=== PATIENT | female | born 1995 | race African-American/Black ===

== ENCOUNTER 2017-05-14 17:56 | Emergency (ER) | payer MEDICAID, OTHER ==
[~2017-05-14] VITALS: Ht 167.6 cm; Wt 68.0 kg
[~2017-05-14 17:56] MED LIST: CLIN150 PO; MMW SWISH-SWAL; PREN0.01 PO
[2017-05-14 17:58] VITALS: BP 120/55; PULSE 70; RESP 20; TEMP 98.2; O2SAT 100
[2017-05-14] MEDS ORDERED: TRAM50TA PO (19:58)
[2017-05-14] MEDS ORDERED: AZIT250T3 PO (19:58)
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
--- NOTE | 2017-05-14 20:49 | RADRPT ---
EXAM DATE/TIME: 05/14/2017 20:37 [facility] COMPARISON: No previous studies available for comparison. INDICATIONS : Cephalgia. RADIATION DOSE: 41.12 CTDIvol (mGy) MEDICAL HISTORY : None SURGICAL HISTORY : None. ENCOUNTER: Initial ACUITY: 2 weeks PAIN SCALE: 6/10 LOCATION: cranial TECHNIQUE: Multiple contiguous axial images were obtained of the head. Using automated exposure control and adj ustment of the mA and/or kV according to patient size, radiation dose was kept as low as reasonably a chievable to obtain optimal diagnostic quality images. FINDINGS: CEREBRUM: The ventricles are normal for age. No evidence of midline shift, mass lesion, hemorrhage or acute in farction. No extra-axial fluid collections are seen. POSTERIOR FOSSA: The cerebellum and brainstem are intact. The 4th ventricle is midline. The cerebellopontine angle i s unremarkable. EXTRACRANIAL: The visualized portion of the orbits is intact. SKULL: The calvaria is intact. No evidence of skull fracture. CONCLUSION: Normal examination. Mesfin Galvan MD on May 14, 2017 at 20:47 Board Certified Radiologist. This report was verified electronically.
[2017-05-14] MEDS ORDERED: CODE30TA2 PO (20:52)
[2017-05-14] MEDS ORDERED: NALBUPHINE HCL 20 MG/ML AMP IM ONE (21:00)
[2017-05-14 21:17] VITALS: RESP 18
== END 2017-05-14 21:38 | disposition home or self-care (01) ==
LOC: NEPD 17:56
DX: G44.209 Tension-type headache, unspecified, not intractable (principal)
CPT/HCPCS: 70450; 84703; 96372; 99285; J2300

== ENCOUNTER 2017-09-03 12:02 | Emergency (ER) | payer MEDICAID ==
[~2017-09-03] VITALS: Ht 167.6 cm; Wt 70.0 kg
[~2017-09-03 12:02] MED LIST changes: +AZIT250T3 PO; -CLIN150 PO; +CODE30TA2 PO; -MMW SWISH-SWAL; -PREN0.01 PO; +TRAM50TA PO
[2017-09-03 12:04] VITALS: BP 129/70; PULSE 78; RESP 16; TEMP 98.5; O2SAT 100
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
--- NOTE | 2017-09-03 13:05 | RADRPT ---
EXAM DATE/TIME: 09/03/2017 13:06 [facility] COMPARISON: No previous studies available for comparison. INDICATIONS : Chest pain. MEDICAL HISTORY : None. SURGICAL HISTORY : None. ENCOUNTER: Initial ACUITY: 3 days PAIN SCORE: 9/10 LOCATION: Bilateral chest FINDINGS: PA and lateral views of the chest demonstrate the lungs to be symmetrically aerated without evidence of mass, infiltrate or effusion. The cardiomediastinal contours are unremarkable. Osseous structure s are intact. CONCLUSION: No acute disease. Maged Amos MD on September 03, 2017 at 13:03 Board Certified Radiologist. This report was verified electronically.
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
[2017-09-03 13:30] VITALS: BP 118/73; TEMP 97.8
[2017-09-03] MEDS ORDERED: NAPROXEN 500 MG TAB PO ONE (13:30)
== END 2017-09-03 13:30 | disposition home or self-care (01) ==
LOC: NEPD 12:02
DX: R07.89 Other chest pain (principal); W52.XXXA Crushed, pushed or stepped on by crowd or human stampede, initial encounter
CPT/HCPCS: 71020; 99283

== ENCOUNTER 2018-01-16 17:15 | Emergency (ER) | payer MEDICAID ==
[~2018-01-16] VITALS: Ht 167.6 cm; Wt 72.0 kg
[2018-01-16 17:20] VITALS: BP 109/55; PULSE 89; RESP 14; TEMP 98.3; O2SAT 99
--- NOTE | 2018-01-16 18:12 | PD ---
HPI Chief Complaint: Allergic/Adverse Reaction Time Seen by Provider: 18:07 Travel History International Travel<30 days: No Contact w/Intl Traveler<30days: No Traveled to known affect area: No History of Present Illness HPI 22-year-old -[place] female presents emergency department with worsening allergy symptoms in the past 24 hours. Patient states she has had these in the past and has been evaluated by a component technician and shactor without any specific findings. Patient denies being exposed anything specifically different today, but has increased sinus congestion, itchy eyes, and puffiness in the sinuses and face. She denies sore throat but has had some mild wheezing. She has no hives or other places on the body other than her eyelids and face. Patient states her symptoms are currently mild but she does not want them to get worse. She has not used prednisone in the past or albuterol or epinephrine. She has only been taking Benadryl. She has no known drug allergies PFSH Past Medical History Arthritis: No Asthma: No Autoimmune Disease: No Heart Rhythm Problems: No Cancer: No Cardiovascular Problems: No High Cholesterol: No Chemotherapy: No Chest Pain: Yes Congestive Heart Failure: No COPD: No Cerebrovascular Accident: No Diabetes: No Diminished Hearing: No Endocrine: No Gastrointestinal Disorders: No GERD: No Genitourinary: No Hiatal Hernia: No Immune Disorder: No Kidney Stones: No Musculoskeletal: No Neurologic: No Psychiatric: No Reproductive: No Respiratory: No Migraines: Yes Radiation Therapy: No Renal Failure: No Seizures: No Sickle Cell Disease: No Sleep Apnea: No Thyroid Disease: No Ulcer: No ?: Not LMP: 01/01/18 : 1 Para: 1 : 0 Past Surgical History Abdominal Surgery: No AICD: No Arteriovenous Shunt: No Cardiac Surgery: No Ear Surgery: No Endocrine Surgery: No Eye Surgery: No Genitourinary Surgery: No Gynecologic Surgery: No Insulin Pump: No Joint Replacement: No Oral Surgery: No Pacemaker: No Thoracic Surgery: No Other Surgery: Yes (HEMERRHOID REPAIR) Social History Alcohol Use: Yes (ocassionally) Tobacco Use: No Substance Use: No Allergies-Medications (Allergen,Severity, Reaction): Coded Allergies: No Known Allergies (Unverified Adverse Reaction, Unknown, 01/16/18) Reported Meds & Prescriptions Reported Meds & Active Scripts Active No Active Prescriptions or Reported Medications Review of Systems Except as stated in HPI: all other systems reviewed are Neg General / Constitutional: No: Fever Eyes: No: Visual changes HENT: Positive: Rhinitis, Rhinorrhea, Congestion, No: Headaches, Vertigo, Lightheadedness, Sore Throat, Nosebleed, Neck Stiffness, Neck Pain, Masses, Gingival Bleeding, Dental Difficulties, Ear Discharge, Earache Cardiovascular: No: Chest Pain or Discomfort Respiratory: Positive: Wheezing, No: Cough, Shortness of Breath, Sneezing Gastrointestinal: No: Nausea, Vomiting, Diarrhea, Abdominal Pain Genitourinary: No: Dysuria Musculoskeletal: No: Pain Skin: No Rash Neurologic: No: Weakness Psychiatric: No: Depression Endocrine: No: Polydipsia Hematologic/Lymphatic: No: Easy Bruising Physical Exam Narrative GENERAL: Patient appears in no obvious distress SKIN: Warm and dry. Normal color. Normal turgor. There is no real rash or erythema, however there is swelling of both upper and lower eyelids bilaterally. HEAD: Atraumatic. Normocephalic. EYES: Pupils equal and round. No scleral icterus. No injection or drainage. ENT: No nasal bleeding or discharge. Mucous membranes pink and moist. Pharynx is clear. Airway is patent NECK: Trachea midline. Supple nontender CARDIOVASCULAR: Regular rate and rhythm. RESPIRATORY: No accessory muscle use. Clear to auscultation. Breath sounds equal bilaterally. GASTROINTESTINAL: Abdomen soft, non-tender, nondistended. Hepatic and splenic margins not palpable. MUSCULOSKELETAL: Extremities without clubbing, cyanosis, or edema. No obvious deformities. NEUROLOGICAL: Awake and alert. No obvious cranial nerve deficits. Motor grossly within normal limits. Five out of 5 muscle strength in the arms and legs. Normal speech. PSYCHIATRIC: Appropriate mood and affect; insight and judgment normal. Data Data Last Documented VS Vital Signs Date Time Temp Pulse Resp B/P (MAP) Pulse Ox O2 Delivery O2 Flow Rate FiO2 01/16/18 17:20 98.3 89 14 109/55 (73) 99 Room Air Orders Orders Prednisone (Deltasone) (01/16/18 18:15) Albuterol-Ipratropium Neb (Duoneb Neb) (01/16/18 18:15) Famotidine (Pepcid) (01/16/18 18:15) [facility] Medical Decision Making Medical Screen Exam Complete: Yes Emergency Medical Condition: Yes Medical Record Reviewed: Yes Differential Diagnosis Seasonal allergies. Allergic rhinitis. Idiopathic urticaria. Allergic reaction Narrative Course Patient is given prednisone 60 mg p.o., as well as 40 mg Pepcid p.o. Patient is to continue the prednisone taper as prescribed Patient is to continue ranitidine 150 mg twice daily for the next 30 days Patient is to continue Benadryl 25 mg 1-2 tabs every 6 hours as needed. #60 Patient is given albuterol metered-dose inhaler 2 puffs every 6 hours as needed wheezing Patient is given a prescription for an EpiPen to be used as needed as discussed Patient to follow-up with shactor as discussed Diagnosis Primary Impression: Allergic reaction Qualified Codes: T78.40XA - Allergy, unspecified, initial encounter Referrals: Primary Care Physician Patient Instructions: Epinephrine (By injection), General Instructions, Urticaria (ED) Additional Instructions: Patient is to continue the prednisone taper as prescribed Patient is to continue ranitidine 150 mg twice daily for the next 30 days Patient is to continue Benadryl 25 mg 1-2 tabs every 6 hours as needed. #60 Patient is given albuterol metered-dose inhaler 2 puffs every 6 hours as needed wheezing Patient is given a prescription for an EpiPen to be used as needed as discussed Patient to follow-up with shactor as discussed Scripts No Active Prescriptions or Reported Meds Disposition: 01 DISCHARGE HOME Condition: Stable Estuardo Back Jan 16, 2018 18:12
[2018-01-16] MEDS ORDERED: predniSONE 20 MG TAB PO ONE (18:15)
[2018-01-16] MEDS ORDERED: FAMOTIDINE 20 MG TAB PO ONE (18:15)
[2018-01-16] MEDS ORDERED: PRED10PA2 PO (18:39)
[2018-01-16] MEDS ORDERED: RANI1TAB7 PO (18:39)
[2018-01-16] MEDS ORDERED: EPIN1INJ19 IM (18:39)
[2018-01-16] MEDS ORDERED: VENTAER INH (18:39)
[2018-01-16] MEDS: RESP: ALBUTEROL 2.5 MG/IPRATROPIUM 0.5 MG NEB (SCH) INH ×2 (18:51→18:52)
== END 2018-01-16 19:43 | disposition home or self-care (01) ==
LOC: NEPD 17:15
DX: T78.40XA Allergy, unspecified, initial encounter (principal); R22.0 Localized swelling, mass and lump, head; R06.2 Wheezing; R09.81 Nasal congestion; Z86.69 Personal history of other diseases of the nervous system and sense organs
CPT/HCPCS: 94640; 94664; 99283; J7512

== ENCOUNTER 2018-02-05 09:28 | Emergency (ER) | payer MEDICAID ==
[~2018-02-05 09:28] MED LIST changes: -AZIT250T3 PO; -CODE30TA2 PO; +EPIN1INJ19 IM; +PRED10PA2 PO; +RANI1TAB7 PO; -TRAM50TA PO; +VENTAER INH
[2018-02-05 09:30] VITALS: BP 114/58; PULSE 64; RESP 14; TEMP 98.5; O2SAT 100
[2018-02-05 10:26] LABS: BACTERIA, URINE FEW /hpf; BILIRUBIN, URINE NEG (NEG); BLOOD, URINE MOD (NEG); GLUCOSE,URINE NEG (NEG); KETONE, URINE NEG (NEG); MUCUS URINE FEW /lpf (OCC); NITRITE,URINE NEG (NEG); PH, URINE 6.5 (5.0-8.5); SQUAMOUS EPITHELIAL CELL URINE 22 /hpf (0-5); URINE COLOR YELLOW (YELLW/STRAW); URINE LEUKOCYTE ESTERASE LARGE (NEG)
[2018-02-05] MEDS ORDERED: LIDOCAINE HCL 1% 50 ML VIAL IM ONE (10:45)
[2018-02-05] MEDS ORDERED: cefTRIAXone 250 MG VIAL IM ONE (10:45)
[2018-02-05] MEDS ORDERED: AZITHROMYCIN PWD FOR SUSP 1 GM PACKET PO ONE (10:45)
--- NOTE | 2018-02-05 11:18 | PD ---
HPI Chief Complaint: Hand Endband Cutter Problem/Complaint Time Seen by Provider: 10:25 Travel History International Travel<30 days: No Contact w/Intl Traveler<30days: No Traveled to known affect area: No History of Present Illness HPI Patient is a 22 year old female who comes in complaining of vaginal spotting and discharge. She says it has been going on since Friday. She says her last menstrual period was January 21. She says this is accompanied by some lower abdominal pain. She denies any dysuria, fever, nausea or vomiting. She is sexually active and not using condoms. She does not know if her partner has any symptoms. Severity is mild. PFSH Past Medical History Arthritis: No Asthma: No Autoimmune Disease: No Heart Rhythm Problems: No Cancer: No Cardiovascular Problems: No High Cholesterol: No Chemotherapy: No Chest Pain: Yes Congestive Heart Failure: No COPD: No Cerebrovascular Accident: No Diabetes: No Diminished Hearing: No Endocrine: No Gastrointestinal Disorders: No GERD: No Genitourinary: No Hiatal Hernia: No Immune Disorder: No Kidney Stones: No Musculoskeletal: No Neurologic: No Psychiatric: No Reproductive: No Respiratory: No Migraines: Yes Radiation Therapy: No Renal Failure: No Seizures: No Sickle Cell Disease: No Sleep Apnea: No Thyroid Disease: No Ulcer: No ?: Not LMP: 01/21/18 : 2 Para: 1 : 1 Past Surgical History Surgical History: No Previous Surgery Abdominal Surgery: No AICD: No Arteriovenous Shunt: No Cardiac Surgery: No Ear Surgery: No Endocrine Surgery: No Eye Surgery: No Genitourinary Surgery: No Gynecologic Surgery: No Insulin Pump: No Joint Replacement: No Oral Surgery: No Pacemaker: No Thoracic Surgery: No Other Surgery: Yes (HEMERRHOID REPAIR) Social History Alcohol Use: Yes (ocassionally) Tobacco Use: No Substance Use: No Allergies-Medications (Allergen,Severity, Reaction): Coded Allergies: No Known Allergies (Unverified Adverse Reaction, Unknown, 01/16/18) Reported Meds & Prescriptions Reported Meds & Active Scripts Active Epinephrine Inj Pack (Epinephrine) 0.15 Mg/0.15 Ml Pfpen 0.15 Mg IM ONCE PRN Ventolin Hfa 18 GM Inh (Albuterol Sulfate) 90 Mcg/Act Aer 2 Puff INH Q4-6H PRN Review of Systems General / Constitutional: No: Fever, Chills HENT: No: Headaches, Lightheadedness, Sore Throat Cardiovascular: No: Chest Pain or Discomfort Respiratory: No: Shortness of Breath Gastrointestinal: Positive: Abdominal Pain, No: Nausea, Vomiting Genitourinary: Positive: Discharge Skin: No Rash, No Change in Pigmentation Neurologic: No: Weakness, Dizziness Physical Exam Narrative GENERAL: Awake and alert, in no acute distress. SKIN: Focused skin assessment warm/dry. HEAD: Atraumatic. Normocephalic. EYES: Pupils equal and round. No scleral icterus. ENT: Mucous membranes pink and moist. CARDIOVASCULAR: Regular rate and rhythm. No murmur appreciated. RESPIRATORY: No accessory muscle use. Clear to auscultation. Breath sounds equal bilaterally. GASTROINTESTINAL: Abdomen soft, non-tender, nondistended. : Exam performed in the presence of a nurse. Thick yellowish discharge present. No cervical lesions. No CMT. MUSCULOSKELETAL: No obvious deformities. No clubbing. No cyanosis. No edema. NEUROLOGICAL: Awake and alert. No obvious cranial nerve deficits. Motor grossly within normal limits. Normal speech. Data Data Last Documented VS Vital Signs Date Time Temp Pulse Resp B/P (MAP) Pulse Ox O2 Delivery O2 Flow Rate FiO2 02/05/18 09:30 98.5 64 14 114/58 (76) 100 Orders Orders Urinalysis - C+S If Indicated (02/05/18 09:32) Ed Urine Pregnancytest Poc (02/05/18 09:32) Gc And Chlamydia Pcr (02/05/18 10:29) Wet Prep Profile (02/05/18 10:29) Ceftriaxone Inj (Rocephin Inj) (02/05/18 10:45) Azithromycin Powd Pack (Zithromax Powd P (02/05/18 10:45) Lidocaine 1% Inj (50 Ml) (Xylocaine 1% I (02/05/18 10:45) Labs Laboratory Tests Test 02/05/18 09:37 02/05/18 10:50 Urine Color YELLOW Urine Turbidity HAZY Urine pH 6.5 Urine Specific Thelma 1.033 Urine Protein 30 mg/dL Urine Glucose (UA) NEG mg/dL Urine Ketones NEG mg/dL Urine Occult Blood MOD Urine Nitrite NEG Urine Bilirubin NEG Urine Urobilinogen 2.0 MG/DL Urine Leukocyte Esterase LARGE Urine RBC 3 /hpf Urine WBC 8 /hpf Urine Squamous Epithelial Cells 22 /hpf Urine Bacteria FEW /hpf Urine Mucus FEW /lpf Microscopic Urinalysis Comment CULT NOT INDICATED Clue Cells (Wet Prep) NONE SEEN Vaginal Trichomonas (Wet Prep) NONE SEEN Vaginal Yeast (Wet Prep) PRESENT MDM Medical Decision Making Medical Screen Exam Complete: Yes Emergency Medical Condition: Yes Medical Record Reviewed: Yes Differential Diagnosis gc/chlamydia vs BV vs UTI Narrative Course Patient is a 22 year old female who comes in complaining of vaginal discharge. Exam shows a thick yellowish discharge. Swab sent to test for gc/chlamydia and for wet prep. Wet Prep is positive for yeast. Will be discharged with prescription for diflucan. Given rocephin and azithromycin to treat for presumptive gc/chlamydia. Advised if her test is positive her partner will need to be treated. Advised to avoid intercourse for the next 2 weeks and to use condoms. Advised to return as needed for any worsening symptoms. Diagnosis Primary Impression: Vaginal discharge Additional Impression: Candidiasis of female genitalia Patient Instructions: General Instructions, Vaginal Discharge (ED), Vulvovaginal Candidiasis (ED) Additional Instructions: Take the Diflucan. Follow up with gynecology. Avoid intercourse for the next 2 weeks. If your gonorrhea or chlamydia test is positive, your partner will need to be treated. Use condoms when having intercourse. Return to the ED as needed for any worsening symptoms. Scripts Fluconazole (Diflucan) 150 Mg Tab 150 MG PO ONCE for Infection, #1 TAB 0 Refills Prov: Kori Belle MD 02/05/18 Disposition: DISCHARGE HOME Condition: Stable Kori Belle MD Feb 05, 2018 11:18
[2018-02-05] MEDS ORDERED: DIFL150T PO (11:46)
== END 2018-02-05 12:08 | disposition home or self-care (01) ==
LOC: NEPE 09:28
DX: N89.8 Other specified noninflammatory disorders of vagina (principal); B37.49 Other urogenital candidiasis
CPT/HCPCS: 81001; 84703; 87210; 87491; 87591; 96372; 99283; J0696

== ENCOUNTER 2018-03-18 09:33 | Emergency (ER) | payer MEDICAID ==
[~2018-03-18] VITALS: Ht 167.6 cm; Wt 70.0 kg
[~2018-03-18 09:33] MED LIST changes: +DIFL150T PO; -PRED10PA2 PO; -RANI1TAB7 PO
[2018-03-18 09:55] VITALS: BP 97/56; PULSE 88; RESP 17; TEMP 98.5; O2SAT 100
[2018-03-18] MEDS ORDERED: SODIUM CHLOR 0.9% 1000 ML INJ 1,000 ML IV ONE (10:20)
[2018-03-18] MEDS ORDERED: KETOROLAC TROMETHAMINE 30 MG/ML (IVP) VIAL IVP ONE (10:30)
[2018-03-18] MEDS ORDERED: SODIUM CHLORIDE 0.9% FLUSH 10 ML FLUSH IVF PRN (10:30)
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
[2018-03-18] MEDS ORDERED: IBUP1TAB7 PO (11:15)
== END 2018-03-18 11:26 | disposition home or self-care (01) ==
LOC: NEPD 09:33
DX: R51 Headache (principal)
CPT/HCPCS: 96374; 99284; J1885; J7030

== ENCOUNTER 2018-04-05 20:57 | Emergency (ER) | payer MEDICAID ==
[~2018-04-05 20:57] MED LIST changes: -DIFL150T PO; -EPIN1INJ19 IM; +IBUP1TAB7 PO; -VENTAER INH
[2018-04-05] MEDS ORDERED: IOHEXOL 350 MG/ML 10 ML VIAL (for RAD DIAG) IVCONTRAST ONE (20:58)
[2018-04-05 21:12] VITALS: BP 102/52; PULSE 83; RESP 18; TEMP 98.6; O2SAT 98
[2018-04-05] MEDS ORDERED: SODIUM CHLOR 0.9% 1000 ML INJ 1,000 ML IV SCH (21:26)
[2018-04-05] MEDS ORDERED: PANTOPRAZOLE SODIUM 40 MG VIAL IVP ONE (21:30)
[2018-04-05] MEDS ORDERED: ONDANSETRON HCL 4 MG/2 ML VIAL IVP ONE (21:30)
[2018-04-05] MEDS ORDERED: SODIUM CHLORIDE 0.9% FLUSH 10 ML FLUSH IV FLUSH PRN (21:30)
--- NOTE | 2018-04-05 21:30 | PD ---
HPI Chief Complaint: GI Complaint Time Seen by Provider: 21:17 Travel History International Travel<30 days: No Contact w/Intl Traveler<30days: No Traveled to known affect area: No History of Present Illness HPI This patient was examined in the presence of a female nurse. 22-year-old female presents for evaluation of abdominal pain, nausea and vomiting. Symptoms started this morning. She reports that initially the pain was periumbilical and now seems to focalize in the right lower quadrant. She reports numerous episodes of nausea and vomiting today as well. She reports that starting this evening her emesis has appeared black with some bright red blood streaks. Denies any coffee-ground appearance. She reports that she has had 4 episodes of watery stool today as well. She reports that her urine has been dark in color this evening as well. Pain is sharp and worse with palpation. Denies vaginal bleeding, vaginal discharge, flank pain. She has had occasional chills. She reports that yesterday for [employer] she ate [place] food for lunch and ate [place] food for dinner but she reports that she ate at restaurants that she typically eats at. No sick contacts. Last menstrual period was March 15. No other complaints at this time. PFSH Past Medical History Arthritis: No Asthma: Yes Autoimmune Disease: No Heart Rhythm Problems: No Cancer: No Cardiovascular Problems: No High Cholesterol: No Chemotherapy: No Chest Pain: Yes Congestive Heart Failure: No COPD: No Cerebrovascular Accident: No Diabetes: No Diminished Hearing: No Endocrine: No Gastrointestinal Disorders: No GERD: No Genitourinary: No Hiatal Hernia: No Immune Disorder: No Kidney Stones: No Musculoskeletal: No Neurologic: No Psychiatric: No Reproductive: No Respiratory: No Immunizations Current: Yes Migraines: Yes Radiation Therapy: No Renal Failure: No Seizures: No Sickle Cell Disease: No Sleep Apnea: No Thyroid Disease: No Ulcer: No ?: Not LMP: 03/15/18 : 2 Para: 1 : 1 Past Surgical History Abdominal Surgery: No AICD: No Arteriovenous Shunt: No Cardiac Surgery: No Ear Surgery: No Endocrine Surgery: No Eye Surgery: No Genitourinary Surgery: No Gynecologic Surgery: No Insulin Pump: No Joint Replacement: No Oral Surgery: No Pacemaker: No Thoracic Surgery: No Other Surgery: Yes (HEMERRHOID REPAIR) Social History Alcohol Use: Yes Tobacco Use: No Substance Use: No Allergies-Medications (Allergen,Severity, Reaction): Coded Allergies: No Known Allergies (Unverified Adverse Reaction, Unknown, 04/05/18) Reported Meds & Prescriptions Reported Meds & Active Scripts Active Zofran Odt (Ondansetron Odt) 4 Mg Tab 4 Mg SL Q6HR PRN Keflex (Cephalexin) 500 Mg Cap 500 Mg PO Q12H 7 Days Ibuprofen 800 Mg Tab 800 Mg PO Q8H PRN Review of Systems Except as stated in HPI: all other systems reviewed are Neg Physical Exam Narrative GENERAL: Well-developed well-nourished female no acute distress SKIN: Warm and dry. HEAD: Atraumatic. Normocephalic. EYES: Pupils equal and round. No scleral icterus. No injection or drainage. ENT: No nasal bleeding or discharge. Mucous membranes pink and moist. NECK: Trachea midline. No JVD. CARDIOVASCULAR: Regular rate and rhythm. No murmur appreciated. RESPIRATORY: No accessory muscle use. Clear to auscultation. Breath sounds equal bilaterally. GASTROINTESTINAL: Abdomen soft, focal mild right lower quadrant tenderness without guarding. Negative Rovsing's. No rebound tenderness. No CVA tenderness. Rectal examination reveals no gross stool in the rectal vault, Hemoccult negative. MUSCULOSKELETAL: No obvious deformities. No clubbing. No cyanosis. No edema. NEUROLOGICAL: Awake and alert. No obvious cranial nerve deficits. Motor grossly within normal limits. Normal speech. PSYCHIATRIC: Appropriate mood and affect; insight and judgment normal. Data Data Last Documented VS Vital Signs Date Time Temp Pulse Resp B/P (MAP) Pulse Ox O2 Delivery O2 Flow Rate FiO2 04/05/18 21:12 98.6 83 18 102/52 (69) 98 Orders Orders Complete Blood Count With Diff (04/05/18 21:26) Comprehensive Metabolic Panel (04/05/18 21:26) Lipase (04/05/18 21:26) Urinalysis - C+S If Indicated (04/05/18 21:26) Ct Abd/Pel W Iv Contrast(Rout) (04/05/18 21:26) Iv Access Insert/Monitor (04/05/18 21:26) Ecg Monitoring (04/05/18 21:26) Oximetry (04/05/18 21:26) Ondansetron Inj (Zofran Inj) (04/05/18 21:30) Pantoprazole Inj (Protonix Inj) (04/05/18 21:30) Sodium Chlor 0.9% 1000 Ml Inj (Ns 1000 M (04/05/18 21:26) Sodium Chloride 0.9% Flush (Ns Flush) (04/05/18 21:30) Ed Urine Pregnancytest Poc (04/05/18 21:26) Urine Culture (04/05/18 21:30) Iohexol 350 Inj (Omnipaque 350 Inj) (04/05/18 20:58) Ed Discharge Order (04/06/18 00:07) Labs Laboratory Tests Test 04/05/18 21:30 04/05/18 21:35 Urine Color YELLOW Urine Turbidity HAZY Urine pH 6.5 Urine Specific [place] 1.030 Urine Protein 30 mg/dL Urine Glucose (UA) NEG mg/dL Urine Ketones TRACE mg/dL Urine Occult Blood TRACE Urine Nitrite NEG Urine Bilirubin NEG Urine Urobilinogen 2.0 MG/DL Urine Leukocyte Esterase MOD Urine RBC 4 /hpf Urine WBC 2 /hpf Urine Squamous Epithelial Cells 28 /hpf Urine Bacteria MOD /hpf Urine Mucus FEW /lpf Microscopic Urinalysis Comment CULTURE INDICATED White Blood Count 7.8 TH/MM3 Red Blood Count 5.12 MIL/MM3 Hemoglobin 13.4 GM/DL Hematocrit 40.9 % Mean Corpuscular Volume 80.0 FL Mean Corpuscular Hemoglobin 26.2 PG Mean Corpuscular Hemoglobin Concent 32.8 % Red Cell Distribution Width 14.5 % Platelet Count 336 TH/MM3 Mean Platelet Volume 6.8 FL Neutrophils (%) (Auto) 37.9 % Lymphocytes (%) (Auto) 47.7 % Monocytes (%) (Auto) 7.6 % Eosinophils (%) (Auto) 6.3 % Basophils (%) (Auto) 0.5 % Neutrophils # (Auto) 3.0 TH/MM3 Lymphocytes # (Auto) 3.7 TH/MM3 Monocytes # (Auto) 0.6 TH/MM3 Eosinophils # (Auto) 0.5 TH/MM3 Basophils # (Auto) 0.0 TH/MM3 CBC Comment DIFF FINAL Differential Comment Blood Urea Nitrogen 15 MG/DL Creatinine 1.12 MG/DL Random Glucose 86 MG/DL Total Protein 8.3 GM/DL Albumin 3.7 GM/DL Calcium Level 8.6 MG/DL Alkaline Phosphatase 62 U/L Aspartate Amino Transf (AST/SGOT) 40 U/L Alanine Aminotransferase (ALT/SGPT) 37 U/L Total Bilirubin 0.4 MG/DL Sodium Level 139 MEQ/L Potassium Level 4.0 MEQ/L Chloride Level 107 MEQ/L Carbon Dioxide Level 26.6 MEQ/L Anion Gap 5 MEQ/L Estimat Glomerular Filtration Rate 72 ML/MIN Lipase 102 U/L MDM Medical Decision Making Medical Screen Exam Complete: Yes Emergency Medical Condition: Yes Medical Record Reviewed: Yes Differential Diagnosis Appendicitis, food poisoning, Janene-George tear, gastroenteritis, peptic ulcer disease, ovarian torsion, PID, cystitis Narrative Course Plan is for lab work, urinalysis, CT abdomen and pelvis. She will be given Protonix, Zofran and IV fluids. At the end of my shift the patient will be signed out to the oncoming provider to follow-up on lab work and imaging studies. Scripts Ondansetron Odt (Zofran Odt) 4 Mg Tab 4 MG SL Q6HR Y for Nausea/Vomiting, #10 TAB 0 Refills Prov: Kareen Saldivar 04/06/18 Cephalexin (Keflex) 500 Mg Cap 500 MG PO Q12H for Infection for 7 Days, #14 CAP 0 Refills Prov: Kareen Saldivar 04/06/18 Fausto Bustos April 05, 2018 21:30
[2018-04-05 21:53] LABS: BASOPHIL % 0.5 % (0.0-2.0); EOSINOPHIL # 0.5 TH/MM3 (0-0.4); EOSINOPHIL % 6.3 % (0.0-4.0); HEMATOCRIT 40.9 % (35.0-46.0); HEMOGLOBIN 13.4 GM/DL (11.6-15.3); LYMPH % 47.7 % (9.0-44.0); LYMPHOCYTE # 3.7 TH/MM3 (1.0-4.8); MEAN CORPUSCULAR HEMOGLOBIN 26.2 PG (27.0-34.0); MEAN CORPUSCULAR HGB CONC 32.8 % (32.0-36.0); MEAN PLATELET VOLUME 6.8 FL (7.0-11.0); MONO % 7.6 % (0.0-8.0); MONOCYTE # 0.6 TH/MM3 (0-0.9); NEUT % 37.9 % (16.0-70.0); PLATELET COUNT 336 TH/MM3 (150-450); RED BLOOD COUNT 5.12 MIL/MM3 (4.00-5.30); RED CELL DISTRIBUTION WIDTH 14.5 % (11.6-17.2); WHITE BLOOD COUNT 7.8 TH/MM3 (4.0-11.0)
[2018-04-05 21:58] LABS: BACTERIA, URINE MOD /hpf; BILIRUBIN, URINE NEG (NEG); BLOOD, URINE TRACE (NEG); GLUCOSE,URINE NEG (NEG); KETONE, URINE TRACE mg/dL (NEG); MUCUS URINE FEW /lpf (OCC); NITRITE,URINE NEG (NEG); PH, URINE 6.5 (5.0-8.5); SQUAMOUS EPITHELIAL CELL URINE 28 /hpf (0-5); URINE COLOR YELLOW (YELLW/STRAW); URINE LEUKOCYTE ESTERASE MOD (NEG)
[2018-04-05 22:17] LABS: ALBUMIN 3.7 GM/DL (3.4-5.0); AST (GOT) 40 U/L (15-37); BICARBONATE 26.6 MEQ/L (21.0-32.0); BLOOD UREA NITROGEN 15 MG/DL (7-18); CALCIUM 8.6 MG/DL (8.5-10.1); CHLORIDE 107 MEQ/L (98-107); CREATININE 1.12 MG/DL (0.50-1.00); GLOMERULAR FILTRATION RATE 72 ML/MIN (>89); GLUCOSE,RANDOM 86 MG/DL (74-106); SODIUM (NA) 139 MEQ/L (136-145)
[2018-04-05 22:21] LABS: ALKALINE PHOSPHATASE 62 U/L (45-117); ALT (GPT) 37 U/L (10-53); TOTAL BILIRUBIN ADULT 0.4 MG/DL (0.2-1.0); TOTAL PROTEIN 8.3 GM/DL (6.4-8.2)
--- NOTE | 2018-04-05 23:40 | RADRPT ---
EXAM DATE/TIME: 04/05/2018 23:21 [place] COMPARISON: No previous studies available for comparison. INDICATIONS : Abdomen pain with hematemesis. IV CONTRAST: 80 cc Omnipaque 350 (iohexol) IV ORAL CONTRAST: No oral contrast ingested. RADIATION DOSE: 6.10 CTDIvol (mGy) MEDICAL HISTORY : SURGICAL HISTORY : Hemorrhoidectomy. ENCOUNTER: Initial ACUITY: 1 day PAIN SCALE: 6/10 LOCATION: abdomen TECHNIQUE: Volumetric scanning of the abdomen and pelvis was performed. Using automated exposure control and ad justment of the mA and/or kV according to patient size, radiation dose was kept as low as reasonably achievable to obtain optimal diagnostic quality images. DICOM format image data is available electro nically for review and comparison. FINDINGS: LOWER LUNGS: The visualized lower lungs are clear. LIVER: Homogeneous density without lesion. There is no dilation of the biliary tree. No calcified gallston es. SPLEEN: Normal size without lesion. PANCREAS: Within normal limits. KIDNEYS: Normal in size and shape. There is no mass, stone or hydronephrosis. ADRENAL GLANDS: Within normal limits. VASCULAR: There is no aortic aneurysm. BOWEL/MESENTERY: The stomach, small bowel, and colon demonstrate no acute abnormality. There is no free intraperitone al air or fluid. ABDOMINAL WALL: Within normal limits. RETROPERITONEUM: There is no lymphadenopathy. BLADDER: No wall thickening or mass. Free fluid in the pelvis REPRODUCTIVE: Within normal limits. INGUINAL: There is no lymphadenopathy or hernia. MUSCULOSKELETAL: Within normal limits for patient age. CONCLUSION: Free fluid in the pelvis. Solid organs are unremarkable. The appendix is normal.. Vamshi Ward MD on April 05, 2018 at 23:37 Board Certified Radiologist. This report was verified electronically.
[2018-04-06] MEDS ORDERED: ZOFR4TAB3 SL (00:07)
[2018-04-06] MEDS ORDERED: CEPH-460 PO (00:07)
--- NOTE | 2018-04-06 00:07 | PD ---
Physical Exam Date Seen by Provider: April 06, 2018 Time Seen by Provider: 00:03 Narrative For full history and physical examination please see previous providers note. I assumed care of this patient change his shift. At that time a CT scan of the abdomen and pelvis as well as a chemistry was still pending. Data Data Last Documented VS Vital Signs Date Time Temp Pulse Resp B/P (MAP) Pulse Ox O2 Delivery O2 Flow Rate FiO2 04/05/18 21:12 98.6 83 18 102/52 (69) 98 Orders Orders Complete Blood Count With Diff (04/05/18 21:26) Comprehensive Metabolic Panel (04/05/18 21:26) Lipase (04/05/18 21:26) Urinalysis - C+S If Indicated (04/05/18:) Ct Abd/Pel W Iv Contrast(Rout) (04/05/18 21:26) Iv Access Insert/Monitor (04/05/18 21:26) Ecg Monitoring (04/05/18:) Oximetry (04/05/18:) Ondansetron Inj (Zofran Inj) (04/05/18 21:30) Pantoprazole Inj (Protonix Inj) (04/05/18 21:30) Sodium Chlor 0.9% 1000 Ml Inj (Ns 1000 M (04/05/18 21:26) Sodium Chloride 0.9% Flush (Ns Flush) (04/05/18 21:30) Ed Urine Pregnancytest Poc (04/05/18 21:26) Urine Culture (04/05/18 21:30) Iohexol 350 Inj (Omnipaque 350 Inj) (04/05/18 20:58) Labs Laboratory Tests Test 04/05/18 21:30 04/05/18 21:35 Urine Color YELLOW Urine Turbidity HAZY Urine pH 6.5 Urine Specific [place] 1.030 Urine Protein 30 mg/dL Urine Glucose (UA) NEG mg/dL Urine Ketones TRACE mg/dL Urine Occult Blood TRACE Urine Nitrite NEG Urine Bilirubin NEG Urine Urobilinogen 2.0 MG/DL Urine Leukocyte Esterase MOD Urine RBC 4 /hpf Urine WBC 2 /hpf Urine Squamous Epithelial Cells 28 /hpf Urine Bacteria MOD /hpf Urine Mucus FEW /lpf Microscopic Urinalysis Comment CULTURE INDICATED White Blood Count 7.8 TH/MM3 Red Blood Count 5.12 MIL/MM3 Hemoglobin 13.4 GM/DL Hematocrit 40.9 % Mean Corpuscular Volume 80.0 FL Mean Corpuscular Hemoglobin 26.2 PG Mean Corpuscular Hemoglobin Concent 32.8 % Red Cell Distribution Width 14.5 % Platelet Count 336 TH/MM3 Mean Platelet Volume 6.8 FL Neutrophils (%) (Auto) 37.9 % Lymphocytes (%) (Auto) 47.7 % Monocytes (%) (Auto) 7.6 % Eosinophils (%) (Auto) 6.3 % Basophils (%) (Auto) 0.5 % Neutrophils # (Auto) 3.0 TH/MM3 Lymphocytes # (Auto) 3.7 TH/MM3 Monocytes # (Auto) 0.6 TH/MM3 Eosinophils # (Auto) 0.5 TH/MM3 Basophils # (Auto) 0.0 TH/MM3 CBC Comment DIFF FINAL Differential Comment Blood Urea Nitrogen 15 MG/DL Creatinine 1.12 MG/DL Random Glucose 86 MG/DL Total Protein 8.3 GM/DL Albumin 3.7 GM/DL Calcium Level 8.6 MG/DL Alkaline Phosphatase 62 U/L Aspartate Amino Transf (AST/SGOT) 40 U/L Alanine Aminotransferase (ALT/SGPT) 37 U/L Total Bilirubin 0.4 MG/DL Sodium Level 139 MEQ/L Potassium Level 4.0 MEQ/L Chloride Level 107 MEQ/L Carbon Dioxide Level 26.6 MEQ/L Anion Gap 5 MEQ/L Estimat Glomerular Filtration Rate 72 ML/MIN Lipase 102 U/L [facility] Medical Record Reviewed: Yes Supervised Visit with RAMOS: Yes Interpretation(s) Last Impressions Abdomen/Pelvis CT 04/05/182125 Signed Impressions: Service Date/Time: Thursday, April 05, 2018 23:21 - CONCLUSION: Free fluid in the pelvis. Solid organs are unremarkable. The appendix is normal.. Vamshi Ward MD Laboratory Tests Test 04/05/18 21:30 04/05/18 21:35 Urine Color YELLOW Urine Turbidity HAZY Urine pH 6.5 Urine Specific [place] 1.030 Urine Protein 30 mg/dL Urine Glucose (UA) NEG mg/dL Urine Ketones TRACE mg/dL Urine Occult Blood TRACE Urine Nitrite NEG Urine Bilirubin NEG Urine Urobilinogen 2.0 MG/DL Urine Leukocyte Esterase MOD Urine RBC 4 /hpf Urine WBC 2 /hpf Urine Squamous Epithelial Cells 28 /hpf Urine Bacteria MOD /hpf Urine Mucus FEW /lpf Microscopic Urinalysis Comment CULTURE INDICATED White Blood Count 7.8 TH/MM3 Red Blood Count 5.12 MIL/MM3 Hemoglobin 13.4 GM/DL Hematocrit 40.9 % Mean Corpuscular Volume 80.0 FL Mean Corpuscular Hemoglobin 26.2 PG Mean Corpuscular Hemoglobin Concent 32.8 % Red Cell Distribution Width 14.5 % Platelet Count 336 TH/MM3 Mean Platelet Volume 6.8 FL Neutrophils (%) (Auto) 37.9 % Lymphocytes (%) (Auto) 47.7 % Monocytes (%) (Auto) 7.6 % Eosinophils (%) (Auto) 6.3 % Basophils (%) (Auto) 0.5 % Neutrophils # (Auto) 3.0 TH/MM3 Lymphocytes # (Auto) 3.7 TH/MM3 Monocytes # (Auto) 0.6 TH/MM3 Eosinophils # (Auto) 0.5 TH/MM3 Basophils # (Auto) 0.0 TH/MM3 CBC Comment DIFF FINAL Differential Comment Blood Urea Nitrogen 15 MG/DL Creatinine 1.12 MG/DL Random Glucose 86 MG/DL Total Protein 8.3 GM/DL Albumin 3.7 GM/DL Calcium Level 8.6 MG/DL Alkaline Phosphatase 62 U/L Aspartate Amino Transf (AST/SGOT) 40 U/L Alanine Aminotransferase (ALT/SGPT) 37 U/L Total Bilirubin 0.4 MG/DL Sodium Level 139 MEQ/L Potassium Level 4.0 MEQ/L Chloride Level 107 MEQ/L Carbon Dioxide Level 26.6 MEQ/L Anion Gap 5 MEQ/L Estimat Glomerular Filtration Rate 72 ML/MIN Lipase 102 U/L Vital Signs Date Time Temp Pulse Resp B/P (MAP) Pulse Ox O2 Delivery O2 Flow Rate FiO2 04/05/18 21:12 98.6 83 18 102/52 (69) 98 Narrative Course Chemistry is unremarkable, CT scan the abdomen and pelvis shows free fluid, a normal appendix and solid organs are unremarkable. Patient was reassessed, she reports feeling better. She will be treated for a UTI, there is a reflex urine culture pending. Discussed with my attending physician as well. Patient stable for discharge. She was given strict return precautions. Diagnosis Primary Impression: UTI (urinary tract infection) Qualified Codes: N39.0 - Urinary tract infection, site not specified; R31.9 - Hematuria, unspecified Additional Impressions: Abdominal pain Qualified Codes: R10.9 - Unspecified abdominal pain Nausea & vomiting Qualified Codes: R11.2 - Nausea with vomiting, unspecified Referrals: Primary Care Physician Patient Instructions: Abdominal Pain (ED), Acute Nausea and Vomiting (ED), General Instructions, Urinary Tract Infection in Women (DC) Additional Instruction: Follow-up with your primary doctor Take medications as directed Return to emergency department for any new or worsening symptoms Med/Other Pt SpecificInfo: Prescription(s) given Scripts Ondansetron Odt (Zofran Odt) 4 Mg Tab 4 MG SL Q6HR Y for Nausea/Vomiting, #10 TAB 0 Refills Prov: Kareen Saldivar 04/06/18 Cephalexin (Keflex) 500 Mg Cap 500 MG PO Q12H for Infection for 7 Days, #14 CAP 0 Refills Prov: Kareen Saldivar 04/06/18 Disposition: 01 DISCHARGE HOME Condition: Stable Kareen Saldivar April 06, 2018 00:07
== END 2018-04-06 00:55 | disposition home or self-care (01) ==
LOC: NEPD 20:57
DX: N39.0 Urinary tract infection, site not specified (principal); R31.9 Hematuria, unspecified
CPT/HCPCS: 74177; 80053; 81001; 83690; 84703; 85025; 87086; 96361; 96374; 96375; 99284; C9113; J2405; J7030; Q9967

== ENCOUNTER 2018-04-09 09:47 | Emergency (ER) | payer MEDICAID ==
[~2018-04-09] VITALS: Ht 167.6 cm; Wt 68.0 kg
[~2018-04-09 09:47] MED LIST changes: +CEPH-460 PO; +ZOFR4TAB3 SL
[2018-04-09 09:53] VITALS: BP 105/46; PULSE 80; RESP 15; TEMP 98.1; O2SAT 100
[2018-04-09 10:30] LABS: BACTERIA, URINE RARE /hpf; BILIRUBIN, URINE NEG (NEG); BLOOD, URINE NEG (NEG); GLUCOSE,URINE NEG (NEG); KETONE, URINE NEG (NEG); MUCUS URINE FEW /lpf (OCC); NITRITE,URINE NEG (NEG); SQUAMOUS EPITHELIAL CELL URINE 5 /hpf (0-5); URINE COLOR YELLOW (YELLW/STRAW); URINE LEUKOCYTE ESTERASE TRACE (NEG)
--- NOTE | 2018-04-09 10:36 | PD ---
HPI Chief Complaint: GI Complaint Time Seen by Provider: 10:30 Travel History International Travel<30 days: No Contact w/Intl Traveler<30days: No Traveled to known affect area: No History of Present Illness HPI The patient was seen and examined in the presence of the nurse. This patient complains of nausea and vomiting. She was seen here 4 days ago for nausea vomiting and abdominal pain. She had negative workup which was fairly extensive including labs and CT. Her abdominal pain has resolved. She really feels quite fine until she eats something and then has postprandial vomiting. Symptom severity is moderate. Duration is 4 days. No alleviating factors. Symptoms are exacerbated by eating a meal PFSH Past Medical History Arthritis: No Asthma: Yes Autoimmune Disease: No Heart Rhythm Problems: No Cancer: No Cardiovascular Problems: No High Cholesterol: No Chemotherapy: No Chest Pain: Yes Congestive Heart Failure: No COPD: No Cerebrovascular Accident: No Diabetes: No Diminished Hearing: No Endocrine: No Gastrointestinal Disorders: No GERD: No Genitourinary: No Hiatal Hernia: No Immune Disorder: No Kidney Stones: No Musculoskeletal: No Neurologic: No Psychiatric: No Reproductive: No Respiratory: No Immunizations Current: Yes Migraines: Yes Radiation Therapy: No Renal Failure: No Seizures: No Sickle Cell Disease: No Sleep Apnea: No Thyroid Disease: No Ulcer: No ?: Not LMP: 03/14/18 : 2 Para: 1 : 1 Past Surgical History Abdominal Surgery: No AICD: No Arteriovenous Shunt: No Cardiac Surgery: No Ear Surgery: No Endocrine Surgery: No Eye Surgery: No Genitourinary Surgery: No Gynecologic Surgery: No Insulin Pump: No Joint Replacement: No Oral Surgery: No Pacemaker: No Thoracic Surgery: No Other Surgery: Yes (HEMERRHOID REPAIR) Social History Alcohol Use: Yes Tobacco Use: No Substance Use: No Allergies-Medications (Allergen,Severity, Reaction): Coded Allergies: No Known Allergies (Unverified Adverse Reaction, Unknown, 04/05/18) Reported Meds & Prescriptions Reported Meds & Active Scripts Active Phenergan (Promethazine HCl) 25 Mg Tablet 25 Mg PO Q6H PRN Phenergan Supp (Promethazine HCl) 25 Mg Supp 25 Mg RECTAL Q6H PRN Zofran Odt (Ondansetron Odt) 4 Mg Tab 4 Mg SL Q6HR PRN Keflex (Cephalexin) 500 Mg Cap 500 Mg PO Q12H 7 Days Ibuprofen 800 Mg Tab 800 Mg PO Q8H PRN Review of Systems General / Constitutional: No: Fever Eyes: No: Visual changes HENT: No: Headaches Cardiovascular: No: Chest Pain or Discomfort Respiratory: No: Shortness of Breath Gastrointestinal: Positive: Nausea, Vomiting, No: Abdominal Pain Genitourinary: No: Dysuria Musculoskeletal: No: Pain Skin: No Rash Neurologic: No: Weakness Psychiatric: No: Depression Endocrine: No: Polydipsia Hematologic/Lymphatic: No: Easy Bruising Physical Exam Narrative GENERAL: Well-nourished, well-developed patient in no apparent distress. SKIN: Focused skin assessment reveals no rash and nodules. Skin is Warm and dry. HEAD: Atraumatic. Normocephalic. EYES: Pupils equal and round. No scleral icterus. No injection or drainage. ENT: No nasal bleeding or discharge. Mucous membranes pink and moist. NECK: Trachea midline. No JVD. CARDIOVASCULAR: Regular rate and rhythm. No murmur appreciated. RESPIRATORY: No accessory muscle use. Clear to auscultation. Breath sounds equal bilaterally. GASTROINTESTINAL: Abdomen soft, non-tender, nondistended. Hepatic and splenic margins not palpable. MUSCULOSKELETAL: No obvious deformities. No clubbing. No cyanosis. No edema. NEUROLOGICAL: Awake and alert. No obvious cranial nerve deficits. Motor grossly within normal limits. Normal speech. PSYCHIATRIC: Appropriate mood and affect; insight and judgment normal. Data Data Last Documented VS Vital Signs Date Time Temp Pulse Resp B/P (MAP) Pulse Ox O2 Delivery O2 Flow Rate FiO2 04/09/18 09:53 98.1 80 15 105/46 (65) 100 Orders Orders Urinalysis - C+S If Indicated (04/09/18 09:57) Ed Urine Pregnancytest Poc (04/09/18 09:57) Iv Access Insert/Monitor (04/09/18 10:32) Sodium Chlor 0.9% 1000 Ml Inj (Ns 1000 M (04/09/18 10:45) Ondansetron Inj (Zofran Inj) (04/09/18 10:45) Complete Blood Count With Diff (04/09/18 10:32) Comprehensive Metabolic Panel (04/09/18 10:32) Ondansetron Odt (Zofran Odt) (04/09/18 12:00) Labs Laboratory Tests Test 04/09/18 10:06 04/09/18 11:00 Urine Color YELLOW Urine Turbidity CLEAR Urine pH 6.0 Urine Specific [place] 1.029 Urine Protein 30 mg/dL Urine Glucose (UA) NEG mg/dL Urine Ketones NEG mg/dL Urine Occult Blood NEG Urine Nitrite NEG Urine Bilirubin NEG Urine Urobilinogen 2.0 MG/DL Urine Leukocyte Esterase TRACE Urine RBC 2 /hpf Urine WBC 1 /hpf Urine Squamous Epithelial Cells 5 /hpf Urine Bacteria RARE /hpf Urine Mucus FEW /lpf Microscopic Urinalysis Comment CULT NOT INDICATED White Blood Count 5.7 TH/MM3 Red Blood Count 4.49 MIL/MM3 Hemoglobin 11.6 GM/DL Hematocrit 35.7 % Mean Corpuscular Volume 79.6 FL Mean Corpuscular Hemoglobin 25.9 PG Mean Corpuscular Hemoglobin Concent 32.6 % Red Cell Distribution Width 14.7 % Platelet Count 308 TH/MM3 Mean Platelet Volume 6.7 FL Neutrophils (%) (Auto) 33.3 % Lymphocytes (%) (Auto) 50.4 % Monocytes (%) (Auto) 7.4 % Eosinophils (%) (Auto) 8.1 % Basophils (%) (Auto) 0.8 % Neutrophils # (Auto) 1.9 TH/MM3 Lymphocytes # (Auto) 2.9 TH/MM3 Monocytes # (Auto) 0.4 TH/MM3 Eosinophils # (Auto) 0.5 TH/MM3 Basophils # (Auto) 0.0 TH/MM3 CBC Comment DIFF FINAL Differential Comment Blood Urea Nitrogen 10 MG/DL Creatinine 0.97 MG/DL Random Glucose 112 MG/DL Total Protein 7.1 GM/DL Albumin 3.2 GM/DL Calcium Level 8.2 MG/DL Alkaline Phosphatase 53 U/L Aspartate Amino Transf (AST/SGOT) 30 U/L Alanine Aminotransferase (ALT/SGPT) 27 U/L Total Bilirubin 0.3 MG/DL Sodium Level 140 MEQ/L Potassium Level 3.9 MEQ/L Chloride Level 109 MEQ/L Carbon Dioxide Level 26.3 MEQ/L Anion Gap 5 MEQ/L Estimat Glomerular Filtration Rate 85 ML/MIN [facility] Medical Decision Making Medical Screen Exam Complete: Yes Emergency Medical Condition: Yes Medical Record Reviewed: Yes Differential Diagnosis Gastroparesis, irritable bowel syndrome, gastric outlet obstruction Narrative Course I have reviewed the patient's electronic medical record. Reviewed her visit from [address] imaging and labs Etiology of her postprandial vomiting is unclear from history and physical. Her exam is normal. Extensive workup a few days ago is negative. IV placed and labs sent I gave her dose of IV Zofran and 1 L normal saline IV bolus Urinalysis today is normal Urine is negative Labs are normal She is euvolemic Etiology of her postprandial vomiting is unclear. She is heading back to her home state of [place] in a few days. She has a family doctor that I recommended she follow-up with. I wrote her some Phenergan and warned her about side effects including sedation Diagnosis Primary Impression: Nausea and vomiting Qualified Codes: R11.2 - Nausea with vomiting, unspecified Additional Impression: Postprandial vomiting Additional Instructions: The patient was advised to follow up with their physician and return if they worsen. I have recommended clear liquids for 24 hours, then gradually advance as tolerated. Med/Other Pt SpecificInfo: Prescription(s) given Scripts Promethazine (Phenergan) 25 Mg Tablet 25 MG PO Q6H Y for NAUSEA OR VOMITING, #12 TAB 0 Refills Prov: Tito Reynoso MD 04/09/18 Promethazine Supp (Phenergan Supp) 25 Mg Supp 25 MG RECTAL Q6H Y for NAUSEA OR VOMITING, #12 SUPP 0 Refills Prov: Tito Reynoso MD 04/09/18 Disposition: 01 DISCHARGE HOME Condition: Stable Tito Reynoso MD April 09, 2018 10:36
[2018-04-09] MEDS ORDERED: SODIUM CHLOR 0.9% 1000 ML INJ 1,000 ML IV ONE (10:45)
[2018-04-09] MEDS ORDERED: ONDANSETRON HCL 4 MG/2 ML VIAL IV ONE (10:45)
[2018-04-09 11:26] LABS: AUTOMATED NEUTROPHIL # 1.9 TH/MM3 (1.8-7.7); BASOPHIL % 0.8 % (0.0-2.0); EOSINOPHIL # 0.5 TH/MM3 (0-0.4); EOSINOPHIL % 8.1 % (0.0-4.0); HEMATOCRIT 35.7 % (35.0-46.0); HEMOGLOBIN 11.6 GM/DL (11.6-15.3); LYMPH % 50.4 % (9.0-44.0); LYMPHOCYTE # 2.9 TH/MM3 (1.0-4.8); MEAN CELL VOLUME 79.6 FL (80.0-100.0); MEAN CORPUSCULAR HEMOGLOBIN 25.9 PG (27.0-34.0); MEAN CORPUSCULAR HGB CONC 32.6 % (32.0-36.0); MEAN PLATELET VOLUME 6.7 FL (7.0-11.0); MONO % 7.4 % (0.0-8.0); MONOCYTE # 0.4 TH/MM3 (0-0.9); NEUT % 33.3 % (16.0-70.0); PLATELET COUNT 308 TH/MM3 (150-450); RED BLOOD COUNT 4.49 MIL/MM3 (4.00-5.30); RED CELL DISTRIBUTION WIDTH 14.7 % (11.6-17.2); WHITE BLOOD COUNT 5.7 TH/MM3 (4.0-11.0)
[2018-04-09] MEDS ORDERED: ONDANSETRON ODT 4 MG TAB PO ONE (12:00)
[2018-04-09 12:11] LABS: ALBUMIN 3.2 GM/DL (3.4-5.0); BLOOD UREA NITROGEN 10 MG/DL (7-18); CREATININE 0.97 MG/DL (0.50-1.00); GLOMERULAR FILTRATION RATE 85 ML/MIN (>89); GLUCOSE,RANDOM 112 MG/DL (74-106); TOTAL PROTEIN 7.1 GM/DL (6.4-8.2)
[2018-04-09 12:12] LABS: ALKALINE PHOSPHATASE 53 U/L (45-117); ALT (GPT) 27 U/L (10-53); AST (GOT) 30 U/L (15-37); BICARBONATE 26.3 MEQ/L (21.0-32.0); CALCIUM 8.2 MG/DL (8.5-10.1); CHLORIDE 109 MEQ/L (98-107); SODIUM (NA) 140 MEQ/L (136-145); TOTAL BILIRUBIN ADULT 0.3 MG/DL (0.2-1.0)
[2018-04-09] MEDS ORDERED: PROM25TA10 PO (13:02)
[2018-04-09] MEDS ORDERED: PROM1SUP7 RECTAL (13:02)
== END 2018-04-09 13:50 | disposition home or self-care (01) ==
LOC: NEPD 09:47
DX: R11.2 Nausea with vomiting, unspecified (principal); J45.909 Unspecified asthma, uncomplicated
CPT/HCPCS: 80053; 81001; 84703; 85025; 99283; J7030